=== PATIENT | male | born 1980 | race African-American/Black ===

== ENCOUNTER 2017-02-18 18:12 | Emergency (ER) | payer MEDICARE, MEDICAID ==
[2017-02-18 18:39] LABS: ADD MAN DIFF? NO
[2017-02-18 18:51] LABS: BASO # 0.1 x10^3/uL (0.0-0.2); BASO % 1 % (0-3); EOS # 0.1 x10^3/uL (0.0-0.7); EOS % 1 % (0-3); HEMATOCRIT 41.8 % (39.0-53.0); HEMOGLOBIN 13.7 g/dL (13.0-17.5); LYMPH # 2.3 x10^3/uL (1.0-4.8); LYMPH % 27 % (24-48); MEAN CORPUSCULAR HEMOGLOBIN 27 pg (25-35); MEAN CORPUSCULAR HGB CONC 33 g/dL (31-37); MEAN CORPUSCULAR VOLUME 82 fL (79-100); MONO # 0.8 x10^3/uL (0.0-1.1); MONO % 9 % (0-9); NEUT # 5.2 x10^3uL (1.8-7.7); NEUT % 62 % (31-73); PLATELET COUNT 279 x10^3/uL (140-400); RED BLOOD COUNT 5.09 x10^6/uL (4.30-5.70); RED CELL DISTRIBUTION WIDTH 12.7 % (11.5-14.5); WHITE BLOOD COUNT 8.4 x10^3/uL (4.0-11.0)
[2017-02-18] MEDS: ASPIRIN CHEWABLE 81 MG TABLET. PO (18:51)
[2017-02-18 18:56] LABS: ANION GAP 12 (6-14); BLOOD UREA NITROGEN 19 mg/dL (8-26); BUN/CREATININE RATIO 27 (6-20); CALCIUM 8.4 mg/dL (8.5-10.1); CARBON DIOXIDE 24 mmol/L (21-32); CHLORIDE 103 mmol/L (98-107); CREATININE 0.7 mg/dL (0.7-1.3); GFR 125.5; GLUCOSE 87 mg/dL (70-99); POTASSIUM 4.5 mmol/L (3.5-5.1); SODIUM 139 mmol/L (136-145)
[2017-02-18 19:02] LABS: TROPONINI < 0.017 ng/mL (0.000-0.055)
[2017-02-18 19:03] LABS: ALBUMIN 3.5 g/dL (3.4-5.0); ALBUMIN/GLOBULIN RATIO 0.7 (1.0-1.7); ALK PHOS 194 U/L (46-116); ALT (SGPT) 56 U/L (16-63); AST (SGOT) 67 U/L (15-37); TOTAL BILIRUBIN 0.2 mg/dL (0.2-1.0); TOTAL PROTEIN 8.3 g/dL (6.4-8.2)
[2017-02-18 20:17] LABS: D-DIMER 0.32 ug/mlFEU (0.00-0.50)
== END 2017-02-18 21:38 | disposition home or self-care (01) ==
LOC: ER 18:12
DX: M94.0 Chondrocostal junction syndrome [Tietze] (principal); K21.9 Gastro-esophageal reflux disease without esophagitis; Z87.442 Personal history of urinary calculi; Z21 Asymptomatic human immunodeficiency virus [HIV] infection status; Z87.891 Personal history of nicotine dependence; Z88.6 Allergy status to analgesic agent
CPT/HCPCS: 36415; 71045; 80053; 84484; 85025; 85379; 93005; 99285-25

== ENCOUNTER 2017-10-04 14:10 | Inpatient (IN) | payer BC, MEDICAID ==
[~2017-10-04] VITALS: Ht 193 cm; Wt 77.1 kg
--- NOTE | 2017-10-04 14:37 | PHYS DOC ---
Past Medical History Past Medical History: DVT, GERD, HIV, Kidney Stone, Other Additional Past Medical Histor: SPINAL NECK TUMOR, LEG PARALYSIS, pulmonary embolism Past Surgical History: No Surgical History Alcohol Use: Occasionally Drug Use: None Adult General Chief Complaint Chief Complaint: CHEST PAIN HPI HPI Patient is a 37-year-old male who arrives in the emergency department via EMS. He has a complex recent past medical history. He is noted to be HIV positive, and reports compliance with his antiretroviral medications. He states he was just hospitalized for about 2 weeks at [facility], after being diagnosed with bilateral pulmonary embolism and DVTs. He was reportedly started on Pradaxa, primarily because of interactions with his HIV medications. He left the hospital last night AGAINST MEDICAL ADVICE, because he states they were trying to find a rehabilitation facility for a minimal having difficulty doing so so he just left the hospital. He states that for the past 2 weeks he has been having intermittent paresis in his legs, and has a fluid collection in his spinal cord, but he was able to ambulate into the house last night. The patient's partner, Kyaw, who I spoke with by phone, was able to provide fairly cohesive history, as noted above. The patient does exhibit some stuttering speech and states he gets flustered, although he is selectively able to speak normally and answer questions normally. He states he fell earlier today and struck his anterior chest and is thus having anterior chest pain. Movement and palpation of this chest worsen his pain. There are no alleviating factors to his symptoms. He did exhibit urinary continence and paresis in his legs upon awakening this morning, but is able to flex and extend his legs now although he does have some weakness to his leg muscles. Review of Systems Review of Systems Constitutional: Denies fever or chills [] Eyes: Denies change in visual acuity, redness, or eye pain [] HENT: Denies nasal congestion or sore throat [] Respiratory: Denies cough or shortness of breath [] Cardiovascular: No additional information not addressed in HPI [] GI: Denies abdominal pain, nausea, vomiting, bloody stools or diarrhea [] : Denies dysuria or hematuria [] Musculoskeletal: Denies back pain or joint pain [] Integument: Denies rash or skin lesions [] Neurologic: Denies headache, focal weakness or sensory changes, except as noted above in the history of present illness. [] Endocrine: Denies polyuria or polydipsia [] All other systems were reviewed and found to be within normal limits, except as documented in this note. Current Medications Current Medications Current Medications Medications (Trade) Dose Ordered Sig/Tej Start Time Stop Time Status Last Admin Dose Admin Dabigatran (Pradaxa) 150 mg 1X ONCE 10/04/17 16:00 10/04/17 16:01 DC 10/04/17 16:04 150 MG Allergies Allergies Allergies Coded Allergies Type Severity Reaction Last Updated Verified naproxen Adverse Reaction Mild 02/18/17 Yes Physical Exam Physical Exam PHYSICAL EXAM: CONSTITUTIONAL: Well developed, well nourished HEAD: normocephalic, atraumatic EENT: PERRL, EOMI. Conjunctivae normal color, sclerae non-icteric; moist mucous membranes. NECK: Supple, non-tender; no meningismus. LUNGS: Lungs CTA, breathing even and unlabored. Normal air movement. HEART: Regular rate and rhythm, no murmur CHEST: No deformity; is some tenderness to palpation to the anterior chest wall. ABDOMEN: The abdomen is soft, and non-tender, no masses or bruits. EXTREM: Normal ROM; no deformity, no calf tenderness. Normal pulses palpable in all extremities. There is no pedal edema. SKIN: No rash; no diaphoresis NEURO: Alert; speech is stuttering, at times, but without dysarthria or aphasia , normal cognition; CN's grossly intact; there is some weakness to the lower extremity as bilaterally relative to the upper extremities, patellar reflexes are intact, there is no gross sensory deficit. BACK: No CVA TTP. Current Patient Data Vital Signs Vital Signs Date Time Temp Pulse Resp B/P (MAP) Pulse Ox O2 Delivery O2 Flow Rate FiO2 10/04/17 15:18 96 116/74 (88) 97 Room Air 10/04/17 14:16 98.0 17 98.0 Lab Values Laboratory Tests Test 10/04/17 15:13 White Blood Count 7.3 x10^3/uL (4.0-11.0) Red Blood Count 4.40 x10^6/uL (4.30-5.70) Hemoglobin 13.0 g/dL (13.0-17.5) Hematocrit 38.8 % (39.0-53.0) L Mean Corpuscular Volume 88 fL (79-100) Mean Corpuscular Hemoglobin 30 pg (25-35) Mean Corpuscular Hemoglobin Concent 34 g/dL (31-37) Red Cell Distribution Width 14.3 % (11.5-14.5) Platelet Count 292 x10^3/uL (140-400) Neutrophils (%) (Auto) 64 % (31-73) Lymphocytes (%) (Auto) 26 % (24-48) Monocytes (%) (Auto) 9 % (0-9) Eosinophils (%) (Auto) 1 % (0-3) Basophils (%) (Auto) 1 % (0-3) Neutrophils # (Auto) 4.6 x10^3uL (1.8-7.7) Lymphocytes # (Auto) 1.9 x10^3/uL (1.0-4.8) Monocytes # (Auto) 0.6 x10^3/uL (0.0-1.1) Eosinophils # (Auto) 0.1 x10^3/uL (0.0-0.7) Basophils # (Auto) 0.0 x10^3/uL (0.0-0.2) Prothrombin Time 13.6 SEC (11.7-14.0) Prothrombin Time INR 1.1 (0.8-1.1) Sodium Level 139 mmol/L (136-145) Potassium Level 3.7 mmol/L (3.5-5.1) Chloride Level 106 mmol/L (98-107) Carbon Dioxide Level 28 mmol/L (21-32) Anion Gap 5 (6-14) L Blood Urea Nitrogen 12 mg/dL (8-26) Creatinine 0.7 mg/dL (0.7-1.3) Estimated GFR (Cockcroft-Gault) 151.9 BUN/Creatinine Ratio 17 (6-20) Glucose Level 106 mg/dL (70-99) H Calcium Level 8.7 mg/dL (8.5-10.1) Magnesium Level 1.7 mg/dL (1.8-2.4) L Total Bilirubin 0.2 mg/dL (0.2-1.0) Aspartate Amino Transferase (AST) 18 U/L (15-37) Alanine Aminotransferase (ALT) 19 U/L (16-63) Alkaline Phosphatase 74 U/L (46-116) Creatine Kinase 51 U/L (39-308) Creatine Kinase MB (Mass) < 0.5 ng/mL (0.0-3.6) Creatine Kinase MB Relative Index % (0-4) Troponin I Quantitative < 0.017 ng/mL (0.000-0.055) HE-Nyg-P-Type Natriuretic Peptide 32 pg/mL (0-124) Total Protein 7.7 g/dL (6.4-8.2) Albumin 2.5 g/dL (3.4-5.0) L Albumin/Globulin Ratio 0.5 (1.0-1.7) L Lipase 152 U/L (73-393) Laboratory Tests 10/04/17 15:13 Laboratory Tests 10/04/17 15:13 EKG EKG [Sinus tachycardia at a rate of 105 beats for minute, normal axis, normal intervals, there are no acute ischemic ST/T changes.] Radiology/Procedures Radiology/Procedures [PROCEDURE: PORTABLE CHEST 1V Portable chest, 10/04/2017: HISTORY: Chest pain after a fall The heart size is normal. No pulmonary infiltrate is seen. There is no evidence of pleural fluid or pneumothorax. IMPRESSION: No acute cardiopulmonary abnormality is detected.] Course & Med Decision Making Course & Med Decision Making Pertinent Labs and Imaging studies reviewed. (See chart for details) [4:10 PM:The patient's condition remains stable. I spoke with the hospitalist , who accepted the patient to the hospital for further evaluation and treatment. I'm awaiting records from [facility], presumably the patient did have spinal imaging at that facility. He does not have any acute paresis or any new symptoms although symptoms are subacute. Further evaluation and treatment will be guided by prior records.] Dragon Disclaimer Dragon Disclaimer This electronic medical record was generated, in whole or in part, using a voice recognition dictation system. Departure Departure Impression: Primary Impression: Atypical chest pain Additional Impressions: Pulmonary embolism HIV (human immunodeficiency virus infection) Leg weakness Disposition: ADMITTED INPATIENT Admitting Physician: Jean-Paul Coreas Condition: STABLE Referrals: JUNIE ROJO DO (PCP) Problem Qualifiers NORA NOVAK MD Oct 04, 2017 14:37
--- NOTE | 2017-10-04 14:49 | EKG ---
[facility] [address] [place] [address] Test Date: 2017-10-04 Test Time: 14:16:59 Pat Name: BOBBY IBRAHIM Department: Room: Gender: M Medical Detailist: : 1980 Requested By: NORA NOVAK Order Number: [id number] Reading MD: Riki Kennedy MD Measurements Intervals [place] Rate: 105 P: 51 LA: 136 QRS: 39 QRSD: 104 T: 36 QT: 332 QTc: 443 Interpretive Statements SINUS TACHYCARDIA Electronically Signed On 10-05-2017 12:28:04 CDT by Riki Kennedy MD
--- NOTE | 2017-10-04 15:19 | RAD ---
Portable chest, 10/04/2017: HISTORY: Chest pain after a fall The heart size is normal. No pulmonary infiltrate is seen. There is no evidence of pleural fluid or pneumothorax. IMPRESSION: No acute cardiopulmonary abnormality is detected. Electronically signed by: Beau Rizzo MD (10/04/2017 3:16 PM) [facility]
[2017-10-04 15:24] LABS: BASO % 1 % (0-3); EOS # 0.1 x10^3/uL (0.0-0.7); EOS % 1 % (0-3); HEMATOCRIT 38.8 % (39.0-53.0); LYMPH # 1.9 x10^3/uL (1.0-4.8); LYMPH % 26 % (24-48); MEAN CORPUSCULAR HEMOGLOBIN 30 pg (25-35); MEAN CORPUSCULAR HGB CONC 34 g/dL (31-37); MEAN CORPUSCULAR VOLUME 88 fL (79-100); MONO # 0.6 x10^3/uL (0.0-1.1); MONO % 9 % (0-9); NEUT # 4.6 x10^3uL (1.8-7.7); NEUT % 64 % (31-73); PLATELET COUNT 292 x10^3/uL (140-400); RED CELL DISTRIBUTION WIDTH 14.3 % (11.5-14.5); WHITE BLOOD COUNT 7.3 x10^3/uL (4.0-11.0)
[2017-10-04 15:33] LABS: PROTHROMBIN TIME PATIENT 13.6 SEC (11.7-14.0)
[2017-10-04 15:41] LABS: CALCIUM 8.7 mg/dL (8.5-10.1); CREATININE 0.7 mg/dL (0.7-1.3); GFR 151.9; POTASSIUM 3.7 mmol/L (3.5-5.1)
[2017-10-04 15:47] LABS: ALBUMIN 2.5 g/dL (3.4-5.0); ALBUMIN/GLOBULIN RATIO 0.5 (1.0-1.7); MAGNESIUM 1.7 mg/dL (1.8-2.4); TOTAL BILIRUBIN 0.2 mg/dL (0.2-1.0); TOTAL PROTEIN 7.7 g/dL (6.4-8.2)
[2017-10-04 15:58] LABS: CREATINE KINASE 51 U/L (39-308)
[2017-10-04] MEDS ORDERED: DABIGATRAN ETEXILATE 150 MG CAPSULE. PO ONE (16:00)
--- NOTE | 2017-10-04 18:53 | PDOC1 ---
History and Physical Date of Admission Date of Admission DATE: 10/04/17 TIME: 18:53 Identification/Chief Complaint Chief Complaint CC states he was just hospitalized for about 2 weeks at [facility],diagnosed with bilateral pulmonary embolism and DVTs. reportedly started on Pradaxa, primarily because of interactions with his HIV medications. LAST NIGHT left the hospital last night AGAINST MEDICAL ADVICE, HX HIV SINE 2011, HX IV DRUG ABUSE states he fell earlier today and struck his anterior chest and is thus having anterior chest pain. palpation of his chest worsen his pain. Past Medical History Past Medical History Past Medical History Past Medical History: DVT, GERD, HIV, Kidney Stone, Other Additional Past Medical Histor: SPINAL NECK TUMOR, LEG PARALYSIS, pulmonary embolism Past Surgical History: No Surgical History Alcohol Use: Occasionally Drug Use: None family hx pos htn ED GENERAL TEMPLATE Adult General Chief Complaint Chief Complaint: CHEST PAIN Infectious disease: HIV ENT: No pertinent hx Social History Smoke: <1 pack per day Drugs: Heroin Current Problem List Problem List Problems Medical Problems: (1) Atypical chest pain Status: Acute (2) HIV (human immunodeficiency virus infection) Status: Acute (3) Leg weakness Status: Acute (4) Pulmonary embolism Status: Acute Current Medications Current Medications Current Medications Dabigatran (Pradaxa) 150 mg 1X ONCE PO Last administered on 10/04/17at 16:04; Start 10/04/17 at 16:00; Stop 10/04/17 at 16:01; Status DC Allergies Allergies: Coded Allergies: naproxen (Verified Adverse Reaction, Mild, 02/18/17) makes me loopy ROS Review of System Review of Systems Review of Systems Constitutional: Denies fever or chills [] Eyes: Denies change in visual acuity, redness, or eye pain [] HENT: Denies nasal congestion or sore throat [] Respiratory: MILD shortness of breath [] Cardiovascular: No additional information not addressed in HPI [] GI: Denies abdominal pain, nausea, vomiting, bloody stools or diarrhea [] : Denies dysuria or hematuria [] Musculoskeletal: Denies back pain or joint pain [] Integument: Denies rash or skin lesions [] Neurologic: Denies headache, focal weakness or sensory changes, except as noted above in the history of present illness. [] Endocrine: Denies polyuria or polydipsia [] 14 PT systems were reviewed and found to be within normal limits, except as documented . Respiratory: YES: Pleuritic Pain Cardiovascular: yes Chest Pain Musculoskeletal: Yes Gait Disturbance Physical Exam Physical Exam PHYSICAL EXAM: CONSTITUTIONAL: Well developed, well nourished HEAD: normocephalic, atraumatic EENT: PERRL, EOMI. Conjunctivae normal color, sclerae non-icteric; moist mucous membranes. NECK: Supple, non-tender; no meningismus. LUNGS: Lungs CTA, breathing even and unlabored. Normal air movement. HEART: Regular rate and rhythm, no murmur CHEST: No deformity; is some tenderness to palpation to the anterior chest wall. ABDOMEN: The abdomen is soft, and non-tender, no masses or bruits. EXTREM: Normal ROM; no deformity, no calf tenderness. Normal pulses palpable in all extremities. There is no pedal edema. SKIN: No rash; no diaphoresis NEURO: Alert; speech is stuttering, at times, but without dysarthria or aphasia , normal cognition; CN's grossly intact; there is no gross sensory deficit. BACK: No CVA TTP. Lungs: Normal air movement Neuro: Cranial nerves 3-12 NL Psych/Mental Status: Mental status NL Vitals Vitals Vital Signs Date Time Temp Pulse Resp B/P (MAP) Pulse Ox O2 Delivery O2 Flow Rate FiO2 10/04/17 18:09 87 19 110/79 (89) 96 Room Air 10/04/17 14:16 98.0 98.0 Labs Labs Laboratory Tests Test 10/04/17 15:13 White Blood Count 7.3 x10^3/uL (4.0-11.0) Red Blood Count 4.40 x10^6/uL (4.30-5.70) Hemoglobin 13.0 g/dL (13.0-17.5) Hematocrit 38.8 % (39.0-53.0) Mean Corpuscular Volume 88 fL (79-100) Mean Corpuscular Hemoglobin 30 pg (25-35) Mean Corpuscular Hemoglobin Concent 34 g/dL (31-37) Red Cell Distribution Width 14.3 % (11.5-14.5) Platelet Count 292 x10^3/uL (140-400) Neutrophils (%) (Auto) 64 % (31-73) Lymphocytes (%) (Auto) 26 % (24-48) Monocytes (%) (Auto) 9 % (0-9) Eosinophils (%) (Auto) 1 % (0-3) Basophils (%) (Auto) 1 % (0-3) Neutrophils # (Auto) 4.6 x10^3uL (1.8-7.7) Lymphocytes # (Auto) 1.9 x10^3/uL (1.0-4.8) Monocytes # (Auto) 0.6 x10^3/uL (0.0-1.1) Eosinophils # (Auto) 0.1 x10^3/uL (0.0-0.7) Basophils # (Auto) 0.0 x10^3/uL (0.0-0.2) Prothrombin Time 13.6 SEC (11.7-14.0) Prothromb Time International Ratio 1.1 (0.8-1.1) Sodium Level 139 mmol/L (136-145) Potassium Level 3.7 mmol/L (3.5-5.1) Chloride Level 106 mmol/L (98-107) Carbon Dioxide Level 28 mmol/L (21-32) Anion Gap 5 (6-14) Blood Urea Nitrogen 12 mg/dL (8-26) Creatinine 0.7 mg/dL (0.7-1.3) Estimated GFR (Cockcroft-Gault) 151.9 BUN/Creatinine Ratio 17 (6-20) Glucose Level 106 mg/dL (70-99) Calcium Level 8.7 mg/dL (8.5-10.1) Magnesium Level 1.7 mg/dL (1.8-2.4) Total Bilirubin 0.2 mg/dL (0.2-1.0) Aspartate Amino Transf (AST/SGOT) 18 U/L (15-37) Alanine Aminotransferase (ALT/SGPT) 19 U/L (16-63) Alkaline Phosphatase 74 U/L (46-116) Creatine Kinase 51 U/L (39-308) Creatine Kinase MB (Mass) < 0.5 ng/mL (0.0-3.6) Creatine Kinase MB Relative Index % (0-4) Troponin I Quantitative < 0.017 ng/mL (0.000-0.055) FP-Rns-C-Type Natriuretic Peptide 32 pg/mL (0-124) Total Protein 7.7 g/dL (6.4-8.2) Albumin 2.5 g/dL (3.4-5.0) Albumin/Globulin Ratio 0.5 (1.0-1.7) Lipase 152 U/L (73-393) Laboratory Tests Test 10/04/17 15:13 White Blood Count 7.3 x10^3/uL (4.0-11.0) Red Blood Count 4.40 x10^6/uL (4.30-5.70) Hemoglobin 13.0 g/dL (13.0-17.5) Hematocrit 38.8 % (39.0-53.0) Mean Corpuscular Volume 88 fL (79-100) Mean Corpuscular Hemoglobin 30 pg (25-35) Mean Corpuscular Hemoglobin Concent 34 g/dL (31-37) Red Cell Distribution Width 14.3 % (11.5-14.5) Platelet Count 292 x10^3/uL (140-400) Neutrophils (%) (Auto) 64 % (31-73) Lymphocytes (%) (Auto) 26 % (24-48) Monocytes (%) (Auto) 9 % (0-9) Eosinophils (%) (Auto) 1 % (0-3) Basophils (%) (Auto) 1 % (0-3) Neutrophils # (Auto) 4.6 x10^3uL (1.8-7.7) Lymphocytes # (Auto) 1.9 x10^3/uL (1.0-4.8) Monocytes # (Auto) 0.6 x10^3/uL (0.0-1.1) Eosinophils # (Auto) 0.1 x10^3/uL (0.0-0.7) Basophils # (Auto) 0.0 x10^3/uL (0.0-0.2) Prothrombin Time 13.6 SEC (11.7-14.0) Prothromb Time International Ratio 1.1 (0.8-1.1) Sodium Level 139 mmol/L (136-145) Potassium Level 3.7 mmol/L (3.5-5.1) Chloride Level 106 mmol/L (98-107) Carbon Dioxide Level 28 mmol/L (21-32) Anion Gap 5 (6-14) Blood Urea Nitrogen 12 mg/dL (8-26) Creatinine 0.7 mg/dL (0.7-1.3) Estimated GFR (Cockcroft-Gault) 151.9 BUN/Creatinine Ratio 17 (6-20) Glucose Level 106 mg/dL (70-99) Calcium Level 8.7 mg/dL (8.5-10.1) Magnesium Level 1.7 mg/dL (1.8-2.4) Total Bilirubin 0.2 mg/dL (0.2-1.0) Aspartate Amino Transf (AST/SGOT) 18 U/L (15-37) Alanine Aminotransferase (ALT/SGPT) 19 U/L (16-63) Alkaline Phosphatase 74 U/L (46-116) Creatine Kinase 51 U/L (39-308) Creatine Kinase MB (Mass) < 0.5 ng/mL (0.0-3.6) Creatine Kinase MB Relative Index % (0-4) Troponin I Quantitative < 0.017 ng/mL (0.000-0.055) TE-Jno-T-Type Natriuretic Peptide 32 pg/mL (0-124) Total Protein 7.7 g/dL (6.4-8.2) Albumin 2.5 g/dL (3.4-5.0) Albumin/Globulin Ratio 0.5 (1.0-1.7) Lipase 152 U/L (73-393) VTE Prophylaxis Ordered VTE Prophylaxis Devices: Yes VTE Pharmacological Prophylaxi: Yes Assessment/Plan Assessment/Plan Impression: Atypical chest pain Pulmonary embolism HIV (human immunodeficiency virus infection) Leg weakness HX IV DRUG ABUSE, REMOTE PLAN PRADAXA 150MG PO BID CYCLE TROPONIN I TELE CARDIOLOGY CONSULT Neurology consult ADITHYA BAIN MD Oct 04, 2017 18:53
[2017-10-04 19:10] VITALS: BP 112/77
[2017-10-04] MEDS: fentaNYL PF VIAL 100 MCG/2 ML VIAL IV PRN (20:56)
[2017-10-04] MEDS: DABIGATRAN ETEXILATE 150 MG CAPSULE. PO SCH (21:49)
[2017-10-04 22:00] LABS: BILIRUBIN,URINE NEGATIVE (NEG); CLARITY,URINE CLEAR; COLOR,URINE YELLOW; NITRITE,URINE NEGATIVE (NEG); PROTEIN,URINE NEGATIVE (NEG-TRACE); UROBILINOGEN,URINE 0.2 mg/dL (0.2 mg/dL)
[2017-10-04 22:10] LABS: BACTERIA,URINE 0 /HPF (0-FEW); RBC,URINE OCC /HPF (0-2)
[2017-10-04 23:10] VITALS: BP 109/77
[2017-10-04] MEDS ORDERED: GABA-586 PO (23:35)
[2017-10-04] MEDS ORDERED: DARU1TAB PO (23:35)
[2017-10-04] MEDS ORDERED: QUET50TA8 PO (23:35)
[2017-10-04] MEDS ORDERED: EMTR1TAB12 PO (23:35)
[2017-10-04] MEDS ORDERED: TRAM50TA PO (23:35)
[2017-10-04] MEDS ORDERED: DIAZEPAM10 MG PO (23:35)
[2017-10-04] MEDS ORDERED: LEVO5TAB2 PO (23:35)
[2017-10-04] MEDS ORDERED: DICY20TA3 PO (23:35)
[2017-10-04] MEDS ORDERED: OMEP40CA5 PO (23:35)
[2017-10-04] MEDS ORDERED: traMADol 50 MG TABLET PO PRN (23:45)
[2017-10-05] MEDS ORDERED: COBICISTAT PO SCH (00:15)
[2017-10-05] MEDS ORDERED: EMTRICITABINE PO SCH (00:15)
[2017-10-05] MEDS ORDERED: DARUNAVIR PO SCH (00:15)
[2017-10-05] MEDS ORDERED: TENOFOV ALAFENAM PO SCH (00:15)
[2017-10-05] MEDS: fentaNYL PF VIAL 100 MCG/2 ML VIAL IV PRN ×3 (00:28→09:42)
[2017-10-05] MEDS: diazePAM 5 MG TABLET PO SCH ×2 (01:08→09:24)
[2017-10-05 07:00] VITALS: BP 117/78
[2017-10-05] MEDS ORDERED: diazePAM 5 MG TABLET PO SCH (09:00)
[2017-10-05] MEDS: DABIGATRAN ETEXILATE 150 MG CAPSULE. PO SCH (09:24)
[2017-10-05] MEDS ORDERED: ACETAMINOPHEN 500 MG TABLET PO PRN (09:45)
[2017-10-05] MEDS ORDERED: ACETAMINOPHEN/CODEINE 300/30MG TABLET. PO PRN (09:45)
[2017-10-05] MEDS ORDERED: ONDANSETRON PF 4 MG/2 ML VIAL. IV PRN (09:45)
[2017-10-05] MEDS ORDERED: ONDANSETRON ODT 4 MG TAB.RAPDIS. PO PRN (09:45)
--- NOTE | 2017-10-05 09:45 | PDOC2 ---
CARDIAC CONSULT DATE OF CONSULT Date of Consult DATE: 10/05/17 TIME: 09:26 REASON FOR CONSULT Reason for Consult: chest pain REFERRING PHYSICIAN Referring Physician: Bartolo SOURCE Source: Chart review, Patient HISTORY OF PRESENT ILLNESS HISTORY OF PRESENT ILLNESS 37 year old male with a history of HIV, hepatitis, syrinx @ T3-T4, bipolar disorder and recent progressive lower extremity weakness who left AMA from [facility] on 10/03/2017 after they were unable to find a rehab/SNU to accept him. Diagnosed with bilateral peroneal vein DVTs there with a right medial lower lobe pulmonary embolus and started on Pradaxa. Reports falling yesterday with left sided chest pain that is worse with inspiration but other details not clear. Was seen in the ER here in February 2017 for similar symptoms. EKG and troponin levels not consistent with AMI. Reason for Visit: musculoskeletal chest pain PAST MEDICAL HISTORY Cardiovascular: No pertinent hx Pulmonary: Pulmonary embolus (right medial lower lobe with bilateral peroneal DVT diagnosed at [facility] 09/2017 - treated with Pradaxa) CENTRAL NERVOUS SYSTEM: Other (T3-T4 syrinx; chronic numbness LLE since 2015 accident) GI: GERD, Other ([facility] shigella[facility] Heme/Onc: No pertinent hx Hepatobiliary: Hep A/B/C Psych: Anxiety, Bipolar Musculoskeletal: Weakness (progressive recently), Other (C5-C6 and C6-C7 cervical spondylosis without stenosis; L5-S1 disk bulging) Infectious disease: HIV Renal/: Urinary Incontinence, Hematuria, Other (renal calculi - left small - seen on CT scan done @ [facility] on 09/26/2017) PAST SURGICAL HISTORY Past Surgical History: No pertinent history FAMILY HISTORY Family History: Family History Unknown SOCIAL HISTORY Social History denies heroin use; + smoking history - details unknown; UDS + @ [facility] on 2017 for meth, benzo, opiates; no UDS done on admission here Lives: with Family (partner - Kyaw) CURRENT MEDICATIONS CURRENT MEDICATIONS Current Medications Medications (Trade) Dose Ordered Sig/Tej Route PRN Reason Start Time Stop Time Status Last Admin Dose Admin Dabigatran (Pradaxa) 150 mg 1X ONCE PO 10/04/17 16:00 10/04/17 16:01 DC 10/04/17 16:04 Dabigatran (Pradaxa) 150 mg BID PO 10/04/17 21:00 10/05/17 09:24 Fentanyl Citrate (Fentanyl 2ml Vial) 50 mcg PRN Q4HRS PRN IV PAIN 10/04/17 20:30 10/05/17 05:57 Non-Formulary Medication (Darunavir/ Cobicistat (Prezcobix 800 mg-150 mg Tablet)) 1 each HS PO 10/05/17 00:15 10/05/17 00:28 Non-Formulary Medication (Emtricitabine/ Tenofov Alafenam (Descovy 200-25 mg Tablet)) 1 each HS PO 10/05/17 00:15 10/05/17 00:29 Diazepam (Valium) 10 mg BID PO 10/05/17 00:30 10/05/17 09:24 ALLERGIES ALLERGIES: Coded Allergies: naproxen (Verified Adverse Reaction, Mild, 02/18/17) makes me loopy ROS Review of System limited due to lack of cooperation PSYCHOLOGICAL ROS: YES: Anxiety Hematological and Lymphatic: YES: Blood Clots Cardiovascular: yes Chest Pain Genitourinary: YES Incontinence, YES Hematuria Musculoskeletal: Yes Gait Disturbance, Yes Muscular Weakness (lower extremities ) PHYSICAL EXAM General: Alert, Oriented X3, Other (not cooperative) HEENT: Atraumatic VITALS VITALS Vital Signs Date Time Temp Pulse Resp B/P (MAP) Pulse Ox O2 Delivery O2 Flow Rate FiO2 10/05/17 07:00 97.2 81 20 117/78 (91) 96 Room Air 97.2 LABS Lab: Laboratory Tests Test 10/04/17 15:13 10/04/17 19:30 10/04/17 21:55 White Blood Count 7.3 x10^3/uL (4.0-11.0) Red Blood Count 4.40 x10^6/uL (4.30-5.70) Hemoglobin 13.0 g/dL (13.0-17.5) Hematocrit 38.8 % (39.0-53.0) Mean Corpuscular Volume 88 fL (79-100) Mean Corpuscular Hemoglobin 30 pg (25-35) Mean Corpuscular Hemoglobin Concent 34 g/dL (31-37) Red Cell Distribution Width 14.3 % (11.5-14.5) Platelet Count 292 x10^3/uL (140-400) Neutrophils (%) (Auto) 64 % (31-73) Lymphocytes (%) (Auto) 26 % (24-48) Monocytes (%) (Auto) 9 % (0-9) Eosinophils (%) (Auto) 1 % (0-3) Basophils (%) (Auto) 1 % (0-3) Neutrophils # (Auto) 4.6 x10^3uL (1.8-7.7) Lymphocytes # (Auto) 1.9 x10^3/uL (1.0-4.8) Monocytes # (Auto) 0.6 x10^3/uL (0.0-1.1) Eosinophils # (Auto) 0.1 x10^3/uL (0.0-0.7) Basophils # (Auto) 0.0 x10^3/uL (0.0-0.2) Prothrombin Time 13.6 SEC (11.7-14.0) Prothromb Time International Ratio 1.1 (0.8-1.1) Sodium Level 139 mmol/L (136-145) Potassium Level 3.7 mmol/L (3.5-5.1) Chloride Level 106 mmol/L (98-107) Carbon Dioxide Level 28 mmol/L (21-32) Anion Gap 5 (6-14) Blood Urea Nitrogen 12 mg/dL (8-26) Creatinine 0.7 mg/dL (0.7-1.3) Estimated GFR (Cockcroft-Gault) 151.9 BUN/Creatinine Ratio 17 (6-20) Glucose Level 106 mg/dL (70-99) Calcium Level 8.7 mg/dL (8.5-10.1) Magnesium Level 1.7 mg/dL (1.8-2.4) Total Bilirubin 0.2 mg/dL (0.2-1.0) Aspartate Amino Transf (AST/SGOT) 18 U/L (15-37) Alanine Aminotransferase (ALT/SGPT) 19 U/L (16-63) Alkaline Phosphatase 74 U/L (46-116) Creatine Kinase 51 U/L (39-308) Creatine Kinase MB (Mass) < 0.5 ng/mL (0.0-3.6) Creatine Kinase MB Relative Index % (0-4) Troponin I Quantitative < 0.017 ng/mL (0.000-0.055) 0.022 ng/mL (0.000-0.055) FE-Utl-V-Type Natriuretic Peptide 32 pg/mL (0-124) Total Protein 7.7 g/dL (6.4-8.2) Albumin 2.5 g/dL (3.4-5.0) Albumin/Globulin Ratio 0.5 (1.0-1.7) Lipase 152 U/L (73-393) Urine Collection Type Unknown Urine Color Yellow Urine Clarity Clear Urine pH 6.0 Urine Specific [place] 1.020 Urine Protein Negative mg/dL (NEG-TRACE) Urine Glucose (UA) Negative mg/dL (NEG) Urine Ketones (Stick) Negative mg/dL (NEG) Urine Blood Negative (NEG) Urine Nitrite Negative (NEG) Urine Bilirubin Negative (NEG) Urine Urobilinogen Dipstick 0.2 mg/dL (0.2 mg/dL) Urine Leukocyte Esterase Negative (NEG) Urine RBC Occ /HPF (0-2) Urine WBC 1-4 /HPF (0-4) Urine Bacteria 0 /HPF (0-FEW) Urine Mucus Mod /LPF IMAGES IMAGES CXR: HISTORY: Chest pain after a fall The heart size is normal. No pulmonary infiltrate is seen. There is no evidence of pleural fluid or pneumothorax. IMPRESSION: No acute cardiopulmonary abnormality is detected. EKG EKG no acute changes, ST ASSESSMENT/PLAN ASSESSMENT/PLAN 1. chest pain --atypical, worse with inspiration --recommend TTE to evaluate LVEF given drug abuse history; ? cooperation as he decompensated after he was asked about his drug use history 2. Lower extremity weakness --T3-T4 syrinx --seen by neurosurgery @ [facility] and surgical intervention not advised 3. HIV --defer to primary service 4. pulmonary embolus with bilateral DVT --continue OAC ARTURO [employer] CHIE[employer] Oct 05, 2017 09:45
[2017-10-05] MEDS ORDERED: CETIRIZINE HCL 10 MG TABLET. PO SCH (10:00)
[2017-10-05] MEDS ORDERED: GABAPENTIN 300 MG CAPSULE. PO SCH (10:00)
[2017-10-05] MEDS ORDERED: PANTOPRAZOLE 40 MG TABLET.DR. PO SCH (10:00)
[2017-10-05] MEDS ORDERED: DICYCLOMINE HCL 10 MG CAPSULE PO PRN (10:00)
[2017-10-05 10:17] LABS: BASO % 0 % (0-3); EOS # 0.1 x10^3/uL (0.0-0.7); EOS % 1 % (0-3); HEMATOCRIT 36.5 % (39.0-53.0); HEMOGLOBIN 12.3 g/dL (13.0-17.5); LYMPH # 1.8 x10^3/uL (1.0-4.8); LYMPH % 26 % (24-48); MEAN CORPUSCULAR HEMOGLOBIN 30 pg (25-35); MEAN CORPUSCULAR HGB CONC 34 g/dL (31-37); MEAN CORPUSCULAR VOLUME 88 fL (79-100); MONO # 0.4 x10^3/uL (0.0-1.1); MONO % 6 % (0-9); NEUT # 4.6 x10^3uL (1.8-7.7); NEUT % 67 % (31-73); PLATELET COUNT 302 x10^3/uL (140-400); RED BLOOD COUNT 4.14 x10^6/uL (4.30-5.70); RED CELL DISTRIBUTION WIDTH 14.4 % (11.5-14.5); WHITE BLOOD COUNT 6.9 x10^3/uL (4.0-11.0)
[2017-10-05 10:53] LABS: ALBUMIN 2.5 g/dL (3.4-5.0); ALBUMIN/GLOBULIN RATIO 0.5 (1.0-1.7); CALCIUM 8.7 mg/dL (8.5-10.1); CREATININE 0.9 mg/dL (0.7-1.3); GFR 113.7; POTASSIUM 3.3 mmol/L (3.5-5.1); TOTAL BILIRUBIN 0.3 mg/dL (0.2-1.0); TOTAL PROTEIN 7.6 g/dL (6.4-8.2)
[2017-10-05 11:00] VITALS: BP 124/76
--- NOTE | 2017-10-05 12:04 | PDOC3 ---
Discharge Summary Visit Information Date of Admission: Oct 04, 2017 Date of Discharge: Oct 05, 2017 Admitting Diagnosis Comment: COSTOCHONDRITIS Atypical chest pain Pulmonary embolism HIV (human immunodeficiency virus infection) Leg weakness HX IV DRUG ABUSE, REMOTE Final Diagnosis Problems Medical Problems: (1) Atypical chest pain Status: Acute (2) HIV (human immunodeficiency virus infection) Status: Acute (3) Leg weakness Status: Acute (4) Pulmonary embolism Status: Acute Brief Hospital Course Allergies Allergies Coded Allergies Type Severity Reaction Last Updated Verified naproxen Adverse Reaction Mild 02/18/17 Yes Vital Signs Vital Signs Date Time Temp Pulse Resp B/P (MAP) Pulse Ox O2 Delivery O2 Flow Rate FiO2 10/05/17 09:42 17 Room Air 10/05/17 07:00 97.2 81 117/78 (91) 96 97.2 Lab Results Laboratory Tests Test 10/04/17 15:13 10/04/17 19:30 10/04/17 21:55 10/05/17 09:45 White Blood Count 7.3 x10^3/uL (4.0-11.0) 6.9 x10^3/uL (4.0-11.0) Red Blood Count 4.40 x10^6/uL (4.30-5.70) 4.14 x10^6/uL (4.30-5.70) Hemoglobin 13.0 g/dL (13.0-17.5) 12.3 g/dL (13.0-17.5) Hematocrit 38.8 % (39.0-53.0) 36.5 % (39.0-53.0) Mean Corpuscular Volume 88 fL (79-100) 88 fL (79-100) Mean Corpuscular Hemoglobin 30 pg (25-35) 30 pg (25-35) Mean Corpuscular Hemoglobin Concent 34 g/dL (31-37) 34 g/dL (31-37) Red Cell Distribution Width 14.3 % (11.5-14.5) 14.4 % (11.5-14.5) Platelet Count 292 x10^3/uL (140-400) 302 x10^3/uL (140-400) Neutrophils (%) (Auto) 64 % (31-73) 67 % (31-73) Lymphocytes (%) (Auto) 26 % (24-48) 26 % (24-48) Monocytes (%) (Auto) 9 % (0-9) 6 % (0-9) Eosinophils (%) (Auto) 1 % (0-3) 1 % (0-3) Basophils (%) (Auto) 1 % (0-3) 0 % (0-3) Neutrophils # (Auto) 4.6 x10^3uL (1.8-7.7) 4.6 x10^3uL (1.8-7.7) Lymphocytes # (Auto) 1.9 x10^3/uL (1.0-4.8) 1.8 x10^3/uL (1.0-4.8) Monocytes # (Auto) 0.6 x10^3/uL (0.0-1.1) 0.4 x10^3/uL (0.0-1.1) Eosinophils # (Auto) 0.1 x10^3/uL (0.0-0.7) 0.1 x10^3/uL (0.0-0.7) Basophils # (Auto) 0.0 x10^3/uL (0.0-0.2) 0.0 x10^3/uL (0.0-0.2) Prothrombin Time 13.6 SEC (11.7-14.0) Prothromb Time International Ratio 1.1 (0.8-1.1) Sodium Level 139 mmol/L (136-145) 137 mmol/L (136-145) Potassium Level 3.7 mmol/L (3.5-5.1) 3.3 mmol/L (3.5-5.1) Chloride Level 106 mmol/L (98-107) 104 mmol/L (98-107) Carbon Dioxide Level 28 mmol/L (21-32) 28 mmol/L (21-32) Anion Gap 5 (6-14) 5 (6-14) Blood Urea Nitrogen 12 mg/dL (8-26) 13 mg/dL (8-26) Creatinine 0.7 mg/dL (0.7-1.3) 0.9 mg/dL (0.7-1.3) Estimated GFR (Cockcroft-Gault) 151.9 113.7 BUN/Creatinine Ratio 17 (6-20) 14 (6-20) Glucose Level 106 mg/dL (70-99) 166 mg/dL (70-99) Calcium Level 8.7 mg/dL (8.5-10.1) 8.7 mg/dL (8.5-10.1) Magnesium Level 1.7 mg/dL (1.8-2.4) Total Bilirubin 0.2 mg/dL (0.2-1.0) 0.3 mg/dL (0.2-1.0) Aspartate Amino Transf (AST/SGOT) 18 U/L (15-37) 17 U/L (15-37) Alanine Aminotransferase (ALT/SGPT) 19 U/L (16-63) 24 U/L (16-63) Alkaline Phosphatase 74 U/L (46-116) 70 U/L (46-116) Creatine Kinase 51 U/L (39-308) Creatine Kinase MB (Mass) < 0.5 ng/mL (0.0-3.6) Creatine Kinase MB Relative Index % (0-4) Troponin I Quantitative < 0.017 ng/mL (0.000-0.055) 0.022 ng/mL (0.000-0.055) < 0.017 ng/mL (0.000-0.055) EY-Rzn-D-Type Natriuretic Peptide 32 pg/mL (0-124) Total Protein 7.7 g/dL (6.4-8.2) 7.6 g/dL (6.4-8.2) Albumin 2.5 g/dL (3.4-5.0) 2.5 g/dL (3.4-5.0) Albumin/Globulin Ratio 0.5 (1.0-1.7) 0.5 (1.0-1.7) Lipase 152 U/L (73-393) Urine Collection Type Unknown Urine Color Yellow Urine Clarity Clear Urine pH 6.0 Urine Specific [place] 1.020 Urine Protein Negative mg/dL (NEG-TRACE) Urine Glucose (UA) Negative mg/dL (NEG) Urine Ketones (Stick) Negative mg/dL (NEG) Urine Blood Negative (NEG) Urine Nitrite Negative (NEG) Urine Bilirubin Negative (NEG) Urine Urobilinogen Dipstick 0.2 mg/dL (0.2 mg/dL) Urine Leukocyte Esterase Negative (NEG) Urine RBC Occ /HPF (0-2) Urine WBC 1-4 /HPF (0-4) Urine Bacteria 0 /HPF (0-FEW) Urine Mucus Mod /LPF Vitamin B12 Level 651 pg/mL (247-911) Thyroid Stimulating Hormone (TSH) 1.544 uIU/mL (0.358-3.74) Laboratory Tests Test 10/04/17 15:13 10/04/17 19:30 10/04/17 21:55 10/05/17 09:45 White Blood Count 7.3 x10^3/uL (4.0-11.0) 6.9 x10^3/uL (4.0-11.0) Red Blood Count 4.40 x10^6/uL (4.30-5.70) 4.14 x10^6/uL (4.30-5.70) Hemoglobin 13.0 g/dL (13.0-17.5) 12.3 g/dL (13.0-17.5) Hematocrit 38.8 % (39.0-53.0) 36.5 % (39.0-53.0) Mean Corpuscular Volume 88 fL (79-100) 88 fL (79-100) Mean Corpuscular Hemoglobin 30 pg (25-35) 30 pg (25-35) Mean Corpuscular Hemoglobin Concent 34 g/dL (31-37) 34 g/dL (31-37) Red Cell Distribution Width 14.3 % (11.5-14.5) 14.4 % (11.5-14.5) Platelet Count 292 x10^3/uL (140-400) 302 x10^3/uL (140-400) Neutrophils (%) (Auto) 64 % (31-73) 67 % (31-73) Lymphocytes (%) (Auto) 26 % (24-48) 26 % (24-48) Monocytes (%) (Auto) 9 % (0-9) 6 % (0-9) Eosinophils (%) (Auto) 1 % (0-3) 1 % (0-3) Basophils (%) (Auto) 1 % (0-3) 0 % (0-3) Neutrophils # (Auto) 4.6 x10^3uL (1.8-7.7) 4.6 x10^3uL (1.8-7.7) Lymphocytes # (Auto) 1.9 x10^3/uL (1.0-4.8) 1.8 x10^3/uL (1.0-4.8) Monocytes # (Auto) 0.6 x10^3/uL (0.0-1.1) 0.4 x10^3/uL (0.0-1.1) Eosinophils # (Auto) 0.1 x10^3/uL (0.0-0.7) 0.1 x10^3/uL (0.0-0.7) Basophils # (Auto) 0.0 x10^3/uL (0.0-0.2) 0.0 x10^3/uL (0.0-0.2) Prothrombin Time 13.6 SEC (11.7-14.0) Prothromb Time International Ratio 1.1 (0.8-1.1) Sodium Level 139 mmol/L (136-145) 137 mmol/L (136-145) Potassium Level 3.7 mmol/L (3.5-5.1) 3.3 mmol/L (3.5-5.1) Chloride Level 106 mmol/L (98-107) 104 mmol/L (98-107) Carbon Dioxide Level 28 mmol/L (21-32) 28 mmol/L (21-32) Anion Gap 5 (6-14) 5 (6-14) Blood Urea Nitrogen 12 mg/dL (8-26) 13 mg/dL (8-26) Creatinine 0.7 mg/dL (0.7-1.3) 0.9 mg/dL (0.7-1.3) Estimated GFR (Cockcroft-Gault) 151.9 113.7 BUN/Creatinine Ratio 17 (6-20) 14 (6-20) Glucose Level 106 mg/dL (70-99) 166 mg/dL (70-99) Calcium Level 8.7 mg/dL (8.5-10.1) 8.7 mg/dL (8.5-10.1) Magnesium Level 1.7 mg/dL (1.8-2.4) Total Bilirubin 0.2 mg/dL (0.2-1.0) 0.3 mg/dL (0.2-1.0) Aspartate Amino Transf (AST/SGOT) 18 U/L (15-37) 17 U/L (15-37) Alanine Aminotransferase (ALT/SGPT) 19 U/L (16-63) 24 U/L (16-63) Alkaline Phosphatase 74 U/L (46-116) 70 U/L (46-116) Creatine Kinase 51 U/L (39-308) Creatine Kinase MB (Mass) < 0.5 ng/mL (0.0-3.6) Creatine Kinase MB Relative Index % (0-4) Troponin I Quantitative < 0.017 ng/mL (0.000-0.055) 0.022 ng/mL (0.000-0.055) < 0.017 ng/mL (0.000-0.055) LF-Fyn-B-Type Natriuretic Peptide 32 pg/mL (0-124) Total Protein 7.7 g/dL (6.4-8.2) 7.6 g/dL (6.4-8.2) Albumin 2.5 g/dL (3.4-5.0) 2.5 g/dL (3.4-5.0) Albumin/Globulin Ratio 0.5 (1.0-1.7) 0.5 (1.0-1.7) Lipase 152 U/L (73-393) Urine Collection Type Unknown Urine Color Yellow Urine Clarity Clear Urine pH 6.0 Urine Specific [place] 1.020 Urine Protein Negative mg/dL (NEG-TRACE) Urine Glucose (UA) Negative mg/dL (NEG) Urine Ketones (Stick) Negative mg/dL (NEG) Urine Blood Negative (NEG) Urine Nitrite Negative (NEG) Urine Bilirubin Negative (NEG) Urine Urobilinogen Dipstick 0.2 mg/dL (0.2 mg/dL) Urine Leukocyte Esterase Negative (NEG) Urine RBC Occ /HPF (0-2) Urine WBC 1-4 /HPF (0-4) Urine Bacteria 0 /HPF (0-FEW) Urine Mucus Mod /LPF Vitamin B12 Level 651 pg/mL (247-911) Thyroid Stimulating Hormone (TSH) 1.544 uIU/mL (0.358-3.74) Brief Hospital Course Mr. Toussaint is a 37 old homosexual male with HIV since 2011 on HAART, lives with his partner, admitted for chest pain which is muscular skeletal. Costochondritis. But admitted because of recent bilateral PE and DVT at [facility]. He is on house arrest. Comanage with cardiology. Echocardiogram pending if that is okay then we'll go home today with no change in meds. Continue continue pradaxa twice a day which she was started on [facility] Hemodynamically stable labs are okay. Ready and medically stable to go home with home health consults performed cardiology Procedures performed echo Discharge time less than 30 minutes Discharge disposition home with home health Discharge Information Condition at Discharge: Improved, Stable Disposition/Orders: D/C to Home w/ HH Scheduled Darunavir/Cobicistat (Prezcobix 800 mg-150 mg Tablet) 1 Each Tablet, 1 EACH PO HS, (Reported) Entered as Reported by: KOJO OLESN on 10/04/172334 Last Action: Converted on 10/04/172347 by KOJO OLSEN Diazepam (Diazepam) 10 Mg Tablet, 10 MG PO BID, (Reported) Entered as Reported by: KOJO LOSEN on 10/04/172334 Last Action: Converted on 10/04/172347 by KOJO OLSEN Emtricitabine/Tenofov Alafenam (Descovy 200-25 mg Tablet) 1 Each Tablet, 1 EACH PO HS, (Reported) Entered as Reported by: KOJO OLSEN on 10/04/172334 Last Action: Converted on 10/04/172347 by KOJO OLSEN Gabapentin (Gabapentin) 300 Mg Capsule, 900 MG PO TID, (Reported) Entered as Reported by: KOJO OLSEN on 10/04/172334 Last Action: Converted on 10/05/17940 by MARIO WHITNEY Levocetirizine Dihydrochloride (Levocetirizine Dihydrochloride) 5 Mg Tablet, 5 MG PO DAILY, (Reported) Entered as Reported by: KOJO OLSEN on 10/04/172334 Last Action: Converted on 10/05/17940 by MARIO WHITNEY Omeprazole (Omeprazole) 40 Mg Capsule.dr, 40 MG PO DAILY, (Reported) Entered as Reported by: KOJO OLSEN on 10/04/172334 Last Action: Converted on 10/05/17940 by MARIO WHITNEY Quetiapine Fumarate (Seroquel Xr) 50 Mg Tab.er.24h, 25 MG PO HS, (Reported) Entered as Reported by: KOJO OLSEN on 10/04/172334 Last Action: Continued on 10/05/17940 by MARIO WHITNEY Scheduled PRN Dicyclomine Hcl (Dicyclomine Hcl) 20 Mg Tablet, 20 MG PO QIDPRN PRN for DIARRHEA , (Reported) Entered as Reported by: KOJO OLSEN on 10/04/172334 Last Action: Converted on 10/05/17940 by MARIO WHITNEY Tramadol Hcl (Tramadol Hcl) 50 Mg Tablet, 100 MG PO Q8HRS PRN for PAIN, ( Reported) Entered as Reported by: KOJO OLSEN on 10/04/172334 Last Action: Continued on 10/04/172347 by MARIO BENNETT MD Oct 05, 2017 12:04
--- NOTE | 2017-10-05 12:15 | CARD ---
MR#: [id number] Date of Study: 10/05/2017 Ordering Physician: ARTURO SHINE, Referring Physician: ADITHYA BAIN Tech: Anabela Fall [place]IL[place] APPROVED REPORT EXAM: Two-dimensional and M-mode echocardiogram with Doppler and color Doppler. Other Information Quality : Good INDICATION Chest Pain 2D DIMENSIONS RVDd2.8 (2.9-3.5cm)Left Atrium(2D)2.9 (1.6-4.0cm) IVSd0.9 (0.7-1.1cm)Aortic Root(2D)3.3 (2.0-3.7cm) LVDd4.9 (3.9-5.9cm)LVOT Diameter2.2 (1.8-2.4cm) PWd0.9 (0.7-1.1cm)LVDs3.5 (2.5-4.0cm) FS (%) 28.5 %SV62.8 ml LVEF(%)55.0 (>50%) Aortic Valve AoV Peak Bry.117.7cm/sAoV VTI21.9cm AO Peak GR.5.5mmHgLVOT VTI 17.57cm AO Mean GR.3mmHgAVA (VTI)3.10cm2 Mitral Valve MV E Qelccglx29.1cm/sMV DECEL QTQZ420sx MV A Ebamambh16.6cm/sE/A Ratio1.3 TDI Lateral E' P. V13.39cm/sMedial E' P. V7.79cm/s E/Lateral E'4.9E/Medial E'8.4 Tricuspid Valve TR P. Ybncaglk040gn/sRAP TYBZYOTF1onRm TR Peak Gr.92ycSvUAKN50fmKu Pulmonary Vein S1 Ltaltoux71.2cm/sS2 Manwjqfg40.53cm/s D2 Ijafzhzd04.5cm/s LEFT VENTRICLE The left ventricle is normal size. There is normal left ventricular wall thickness. The left ventricu lar systolic function is normal and the ejection fraction is within normal range. The Ejection Fracti on is 55-60%. There is normal LV segmental wall motion. The left ventricular diastolic function and f illing is normal for age. RIGHT VENTRICLE The right ventricle is normal size. The right ventricular systolic function is normal. ATRIA The left atrium size is normal. The right atrium size is normal. The interatrial septum is intact wit h no evidence for an atrial septal defect or patent foramen ovale as noted on 2-D or Doppler imaging. AORTIC VALVE The aortic valve is normal in structure and function. Doppler and Color Flow revealed no significant aortic regurgitation. There is no significant aortic valvular stenosis. MITRAL VALVE The mitral valve is normal in structure and function. There is no evidence of mitral valve prolapse. There is no mitral valve stenosis. Doppler and Color-flow revealed trace mitral regurgitation. TRICUSPID VALVE The tricuspid valve is normal in structure and function. Doppler and Color Flow revealed trace tricus pid regurgitation. The PA pressure was estimated at 25 mmHg. There is no tricuspid valve stenosis. PULMONIC VALVE Doppler and Color Flow revealed trace pulmonic valvular regurgitation. There is no pulmonic valvular stenosis. GREAT VESSELS The aortic root is normal in size. The ascending aorta is normal in size. The IVC is normal in size a nd collapses >50% with inspiration. PERICARDIAL EFFUSION There is no evidence of significant pericardial effusion. Critical Notification Critical Value: No <Conclusion> The left ventricular systolic function is normal and the ejection fraction is within normal range. Th e Ejection Fraction is 55-60%. There is normal LV segmental wall motion. Signed by : Riki Kennedy, Electronically Approved : 10/05/2017 12:14:18
[2017-10-05 12:42] LABS: BARBITURATES NEG (NEG); BENZODIAZEPINES POS (NEG); CANNABINOIDS NEG (NEG); COCAINE NEG (NEG); METHADONE NEG (NEG); OPIATES NEG (NEG); PHENCYCLIDINE NEG (NEG)
[2017-10-05 12:43] LABS: AMPHETAMINE/METHAMPHETAMINE NEG (NEG)
--- NOTE | 2017-10-05 13:50 | RAD ---
CT LUMBAR SPINE WO CONTRAST, CT CERVICAL SPINE WO CONTRAST dated 10/05/2017 12:52 PM Indication:, Weakness.SPINAL CORD INJURY.. Comparison: No comparison is available. Technique: Contiguous axial imaging of the cervical and lumbar spine performed with thin cut coronal and sagittal reconstruction. One or more of the following individualized dose reduction techniques were utilized for this examination: 1. Automated exposure control 2. Adjustment of the mA and/or kV according to patient size 3. Use of iterative reconstruction technique Findings: Images of the cervical spine show slight retrolisthesis of C6 on C7. Sagittal alignment is otherwise anatomic. Vertebral body heights are maintained. No prevertebral soft tissue swelling. Posterior elements are intact. No evidence of fracture. Mild hypertrophic change of the superior and inferior endplates throughout. Multilevel uncovertebral spurring and facet arthropathy. Mild broad-based bulge and small left central protrusion at C5-C6 results in mild to moderate narrowing of the central canal with AP diameter canal narrowed to about 8 mm. Broad-based bulge at C6-C7 results in mild to moderate central stenosis with AP diameter canal narrowed to about 7 mm. There is moderate left foraminal stenosis at C5-C6 and C6-C7. Mild right foraminal stenosis at C6-C7. Visualized soft tissue structures unremarkable. Images of lumbar spine show normal sagittal alignment. Vertebral body heights are maintained. Posterior elements are intact. No evidence of fracture. Mild hypertrophic change of the superior and inferior endplates throughout with mild hypertrophic change of the lower lumbar apophyseal joints. Mild broad-based bulging at L3-L4, L4-L5 and L5-S1. No apparent central canal or foraminal compromise of the lumbar spine. There are borderline enlarged retroperitoneal lymph nodes. A left periaortic lymph node measures 11 mm short axis (coronal image 7). No additional soft tissue abnormality. Impression cervical spine: 1. No evidence of fracture or malalignment. 2. Mild multilevel spondylosis. There is mild to moderate central stenosis at C5-C6 and C6-C7 with varying degrees of mild to moderate foraminal narrowing throughout. The cervical cord is not well evaluated based on technique. Impression lumbar spine: 1. No evidence of fracture or malalignment. 2. Mild lower lumbar spondylosis with no evidence of neural compression. Electronically signed by: Bucky Torres MD (10/05/2017 1:47 PM) [id number]
--- NOTE | 2017-10-05 18:40 | PDOC2 ---
NEUROLOGY CONSULT Date of Admission Date of Admission DATE: 10/05/17 TIME: 18:23 Reason for Consult Reason for Consult: IMPRESSION: Bilateral LE weakness x 3 years. HIV. HCV. PE. DVT. IV drug user in past. RECOMMENDATIONS/PLAN: C-L spine MRI, but contraindicated due to legal metal device in his leg. C-L spine CT w/o contract instead. He was treated with anticoagulant for PE. Continue Neurontin. Treat HIV with ID. OT/PT. HISTORY OF THE PRESENT ILLNESS: 37-y-ole male patient with Hx of HIV, HCV, IV drug use/abuse is currently under house monitoring. He stated he was tested HIV and HCV positive in 2011 and received treatment. He sated he has LE weakness for about 3 years so far unable to walk. He was recently hospitalized in [facility] due to PE and DVT. PAST MEDICAL HISTORY Cardiovascular: No pertinent hx Pulmonary: Pulmonary embolus (right medial lower lobe with bilateral peroneal DVT diagnosed at [facility] 09/2017 - treated with Pradaxa) CENTRAL NERVOUS SYSTEM: Other (T3-T4 syrinx; chronic numbness LLE since 2015 accident) GI: GERD, Other (recent abx for shigella, e coli and ccampylobactor in the [facility]) Heme/Onc: No pertinent hx Hepatobiliary: Hep A/B/C Psych: Anxiety, Bipolar Musculoskeletal: Weakness (progressive recently), Other (C5-C6 and C6-C7 cervical spondylosis without stenosis; L5-S1 disk bulging) Infectious disease: HIV Renal/: Urinary Incontinence, Hematuria, Other (renal calculi - left small - seen on CT scan done @ [facility] on 09/26/2017) PAST SURGICAL HISTORY No pertinent history FAMILY HISTORY Unknown SOCIAL HISTORY Denies heroin use; + smoking history - details unknown; UDS + in [facility] on 2017 for meth, benzo, opiates. Lives: with partner - [place]aw. ALLERGY: Unknown MEDICATIONS: Refer to MAR REVIEW OF SYSTEMS: Constitutional: No cachexia. Head: No traumatic brain or head injury. Skin: No edema, or rash. Ear: No infection. Eyes: No vision loss or color blindness. Nose: No bleeding or purulent discharges. Hearing: No hearing decrease. Neck: No injury. Cardiac: No WA, arrhythmia. Pulmonary: No COPD. GI: GERD. Urinary/genital: UTI. Endocrinologic: No cousin face, craniofacial dysmorphism, polydactyly. Skeletomuscular: LE weakness. Neurological: see HP. Psychiatric: IV drug use/abuse in past. Otherwise, not [id number] review of systems. PHYSICAL EXAMINATION: General appearance is in chronic distress. HEENT: Normocephalic and nontraumatic. Eyes, nose, ears, and throat are unremarkable. Neck is supple. No lymphadenopathy. No bruits are heard over the carotid artery. No crepitus. Cardiovascular: S1, S2, regular rate and rhythm. Pulmonary: Clear to auscultation bilaterally. Abdomen: Bowel sounds are positive. Abdomen is soft, nontender, and nondistended. Extremities: No rash, lesions, or edema. No restriction of range of motion NEUROLOGICAL EXAMINATION: Alert Oriented to time, place and person. PERRL. EOMI. CN: no focal findings. Muscle tone: within normal. Muscle strength: 5 UE, 3-4 LE. DTR: 2 UE, brisky at knee. Plantar reflex: Flexor response bilaterally Gait: not examined in bed. Sensory exam: no abnormal findings. No cerebellar signs elicited. F-T-N test fine. Current Medications Current Medications Current Medications Dabigatran (Pradaxa) 150 mg 1X ONCE PO Last administered on 10/04/17at 16:04; Start 10/04/17 at 16:00; Stop 10/04/17 at 16:01; Status DC Dabigatran (Pradaxa) 150 mg BID PO Last administered on 10/05/17at 09:24; Start 10/04/17 at 21:00; Stop 10/05/17 at 14:19; Status DC Fentanyl Citrate (Fentanyl 2ml Vial) 50 mcg PRN Q4HRS PRN IV PAIN Last administered on 10/05/17at 09:42; Start 10/04/17 at 20:30; Stop 10/05/17 at 14:19 ; Status DC Tramadol HCl (Ultram) 100 mg PRN Q8HRS PRN PO PAIN; Start 10/04/17 at 23:45; Stop 10/05/17 at 14:19; Status DC Non-Formulary Medication (Darunavir/ Cobicistat (Prezcobix 800 mg-150 mg Tablet) ) 1 each HS PO Last administered on 10/05/17at 00:28; Start 10/05/17 at 00:15; Stop 10/05/17 at 14:19; Status DC Diazepam (Valium) 10 mg BID PO ; Start 10/05/17 at 09:00; Stop 10/05/17 at 09:00 ; Status DC Non-Formulary Medication (Emtricitabine/ Tenofov Alafenam (Descovy 200-25 mg Tablet)) 1 each HS PO Last administered on 10/05/17at 00:29; Start 10/05/17 at 00:15; Stop 10/05/17 at 14:19; Status DC Diazepam (Valium) 10 mg BID PO Last administered on 10/05/17at 09:24; Start at 00:30; Stop 10/05/17 at 14:19; Status DC Acetaminophen (Tylenol) 500 mg PRN Q6HRS PRN PO HEADACHE / TEMP; Start at 09:45; Stop 10/05/17 at 14:19; Status DC Acetaminophen/ Codeine Phosphate (Tylenol #3) 1 tab PRN Q6HRS PRN PO PAIN MILD ; Start 10/05/17 at 09:45; Stop 10/05/17 at 14:19; Status DC Ondansetron HCl (Zofran) 4 mg PRN Q6HRS PRN IV NAUSEA/VOMITING; Start 10/05/17 at 09:45; Stop 10/05/17 at 14:19; Status DC Ondansetron HCl (Zofran Odt) 4 mg PRN Q6HRS PRN PO NAUSEA/VOMITING; Start 10/05 at 09:45; Stop 10/05/17 at 14:19; Status DC Quetiapine Fumarate (SEROquel XR) 25 mg HS PO ; Start 10/05/17 at 21:00; Stop at 21:00; Status DC Dicyclomine HCl (Bentyl) 20 mg PRN QID PRN PO ABDOMINAL CRAMPING; Start at 10:00; Stop 10/05/17 at 14:19; Status DC Gabapentin (Neurontin) 900 mg TID PO Last administered on 10/05/17at 13:47; Start 10/05/17 at 10:00; Stop 10/05/17 at 14:19; Status DC Cetirizine HCl (ZyrTEC) 10 mg DAILY PO Last administered on 10/05/17at 13:47; Start 10/05/17 at 10:00; Stop 10/05/17 at 14:19; Status DC Pantoprazole Sodium (Protonix) 40 mg DAILYAC PO Last administered on 10/05/17at 13:47; Start 10/05/17 at 10:00; Stop 10/05/17 at 14:19; Status DC Active Scripts Active Reported Tramadol Hcl 50 Mg Tablet 100 Mg PO Q8HRS PRN Dicyclomine Hcl 20 Mg Tablet 20 Mg PO QIDPRN PRN Omeprazole 40 Mg Capsule.dr 40 Mg PO DAILY Levocetirizine Dihydrochloride 5 Mg Tablet 5 Mg PO DAILY Diazepam 10 Mg Tablet 10 Mg PO BID Seroquel Xr (Quetiapine Fumarate) 50 Mg Tab.er.24h 25 Mg PO HS Gabapentin 300 Mg Capsule 900 Mg PO TID Descovy 200-25 mg Tablet (Emtricitabine/Tenofov Alafenam) 1 Each Tablet 1 Each PO HS Prezcobix 800 mg-150 mg Tablet (Darunavir/Cobicistat) 1 Each Tablet 1 Each PO HS Allergies Allergies: Allergies Coded Allergies Type Severity Reaction Last Updated Verified naproxen Adverse Reaction Mild 02/18/17 Yes ROS Review of System The patient denies any associated fevers, chills, headache, ear pain, rhinorrhea , sore throat, stiff neck, productive cough, chest pain, shortness of breath, back or flank pain, abdominal pain, nausea, vomiting, diarrhea, constipation, dysuria, rash, numbness, weakness, tingling, incontinence, difficulty ambulating, or diaphoresis. Physical Exam Physical Exam General: Well developed, well nourished, no acute distress, well appearing HEENT: Pupils equally round and reactive to light, EOMI, no discharge, normal conjunctiva Neck: Supple, no nuchal rigidity, no JVD, trachea midline, no tenderness Cardiac: RRR, no murmurs, no gallops, no rubs Chest/Lungs: CTAB, no wheeze, no rhonchi, no crackles Abdomen: soft, non-distended, no guarding, no peritoneal signs, non-tender Back: No tenderness Extremities: no edema, pulses intact, non-tender,capillary refill <3 sec bilateral upper and lower extremities, Neuro: Alert and oriented x 4, no focal deficits, normal speech Vitals Vitals: Vital Signs Date Time Temp Pulse Resp B/P (MAP) Pulse Ox O2 Delivery O2 Flow Rate FiO2 10/05/17 11:00 94 20 124/76 (92) 96 Room Air 10/05/17 07:00 97.2 97.2 Labs Labs Laboratory Tests Test 10/04/17 15:13 10/04/17 19:30 10/04/17 21:55 10/05/17 09:45 White Blood Count 7.3 x10^3/uL (4.0-11.0) 6.9 x10^3/uL (4.0-11.0) Red Blood Count 4.40 x10^6/uL (4.30-5.70) 4.14 x10^6/uL (4.30-5.70) Hemoglobin 13.0 g/dL (13.0-17.5) 12.3 g/dL (13.0-17.5) Hematocrit 38.8 % (39.0-53.0) 36.5 % (39.0-53.0) Mean Corpuscular Volume 88 fL (79-100) 88 fL (79-100) Mean Corpuscular Hemoglobin 30 pg (25-35) 30 pg (25-35) Mean Corpuscular Hemoglobin Concent 34 g/dL (31-37) 34 g/dL (31-37) Red Cell Distribution Width 14.3 % (11.5-14.5) 14.4 % (11.5-14.5) Platelet Count 292 x10^3/uL (140-400) 302 x10^3/uL (140-400) Neutrophils (%) (Auto) 64 % (31-73) 67 % (31-73) Lymphocytes (%) (Auto) 26 % (24-48) 26 % (24-48) Monocytes (%) (Auto) 9 % (0-9) 6 % (0-9) Eosinophils (%) (Auto) 1 % (0-3) 1 % (0-3) Basophils (%) (Auto) 1 % (0-3) 0 % (0-3) Neutrophils # (Auto) 4.6 x10^3uL (1.8-7.7) 4.6 x10^3uL (1.8-7.7) Lymphocytes # (Auto) 1.9 x10^3/uL (1.0-4.8) 1.8 x10^3/uL (1.0-4.8) Monocytes # (Auto) 0.6 x10^3/uL (0.0-1.1) 0.4 x10^3/uL (0.0-1.1) Eosinophils # (Auto) 0.1 x10^3/uL (0.0-0.7) 0.1 x10^3/uL (0.0-0.7) Basophils # (Auto) 0.0 x10^3/uL (0.0-0.2) 0.0 x10^3/uL (0.0-0.2) Prothrombin Time 13.6 SEC (11.7-14.0) Prothromb Time International Ratio 1.1 (0.8-1.1) Sodium Level 139 mmol/L (136-145) 137 mmol/L (136-145) Potassium Level 3.7 mmol/L (3.5-5.1) 3.3 mmol/L (3.5-5.1) Chloride Level 106 mmol/L (98-107) 104 mmol/L (98-107) Carbon Dioxide Level 28 mmol/L (21-32) 28 mmol/L (21-32) Anion Gap 5 (6-14) 5 (6-14) Blood Urea Nitrogen 12 mg/dL (8-26) 13 mg/dL (8-26) Creatinine 0.7 mg/dL (0.7-1.3) 0.9 mg/dL (0.7-1.3) Estimated GFR (Cockcroft-Gault) 151.9 113.7 BUN/Creatinine Ratio 17 (6-20) 14 (6-20) Glucose Level 106 mg/dL (70-99) 166 mg/dL (70-99) Calcium Level 8.7 mg/dL (8.5-10.1) 8.7 mg/dL (8.5-10.1) Magnesium Level 1.7 mg/dL (1.8-2.4) Total Bilirubin 0.2 mg/dL (0.2-1.0) 0.3 mg/dL (0.2-1.0) Aspartate Amino Transf (AST/SGOT) 18 U/L (15-37) 17 U/L (15-37) Alanine Aminotransferase (ALT/SGPT) 19 U/L (16-63) 24 U/L (16-63) Alkaline Phosphatase 74 U/L (46-116) 70 U/L (46-116) Creatine Kinase 51 U/L (39-308) Creatine Kinase MB (Mass) < 0.5 ng/mL (0.0-3.6) Creatine Kinase MB Relative Index % (0-4) Troponin I Quantitative < 0.017 ng/mL (0.000-0.055) 0.022 ng/mL (0.000-0.055) < 0.017 ng/mL (0.000-0.055) MP-Eab-F-Type Natriuretic Peptide 32 pg/mL (0-124) Total Protein 7.7 g/dL (6.4-8.2) 7.6 g/dL (6.4-8.2) Albumin 2.5 g/dL (3.4-5.0) 2.5 g/dL (3.4-5.0) Albumin/Globulin Ratio 0.5 (1.0-1.7) 0.5 (1.0-1.7) Lipase 152 U/L (73-393) Urine Collection Type Unknown Urine Color Yellow Urine Clarity Clear Urine pH 6.0 Urine Specific [place] 1.020 Urine Protein Negative mg/dL (NEG-TRACE) Urine Glucose (UA) Negative mg/dL (NEG) Urine Ketones (Stick) Negative mg/dL (NEG) Urine Blood Negative (NEG) Urine Nitrite Negative (NEG) Urine Bilirubin Negative (NEG) Urine Urobilinogen Dipstick 0.2 mg/dL (0.2 mg/dL) Urine Leukocyte Esterase Negative (NEG) Urine RBC Occ /HPF (0-2) Urine WBC 1-4 /HPF (0-4) Urine Bacteria 0 /HPF (0-FEW) Urine Mucus Mod /LPF Vitamin B12 Level 651 pg/mL (247-911) Thyroid Stimulating Hormone (TSH) 1.544 uIU/mL (0.358-3.74) Test 10/05/17 12:06 Urine Opiates Screen Neg (NEG) Urine Methadone Screen Neg (NEG) Urine Barbiturates Neg (NEG) Urine Phencyclidine Screen Neg (NEG) Urine Amphetamine/Methamphetamine Neg (NEG) Urine Benzodiazepines Screen Pos (NEG) Urine Cocaine Screen Neg (NEG) Urine Cannabinoids Screen Neg (NEG) Urine Ethyl Alcohol Neg (NEG) Laboratory Tests Test 10/04/17 19:30 10/04/17 21:55 10/05/17 09:45 10/05/17 12:06 Troponin I Quantitative 0.022 ng/mL (0.000-0.055) < 0.017 ng/mL (0.000-0.055) Urine Collection Type Unknown Urine Color Yellow Urine Clarity Clear Urine pH 6.0 Urine Specific [place] 1.020 Urine Protein Negative mg/dL (NEG-TRACE) Urine Glucose (UA) Negative mg/dL (NEG) Urine Ketones (Stick) Negative mg/dL (NEG) Urine Blood Negative (NEG) Urine Nitrite Negative (NEG) Urine Bilirubin Negative (NEG) Urine Urobilinogen Dipstick 0.2 mg/dL (0.2 mg/dL) Urine Leukocyte Esterase Negative (NEG) Urine RBC Occ /HPF (0-2) Urine WBC 1-4 /HPF (0-4) Urine Bacteria 0 /HPF (0-FEW) Urine Mucus Mod /LPF White Blood Count 6.9 x10^3/uL (4.0-11.0) Red Blood Count 4.14 x10^6/uL (4.30-5.70) Hemoglobin 12.3 g/dL (13.0-17.5) Hematocrit 36.5 % (39.0-53.0) Mean Corpuscular Volume 88 fL (79-100) Mean Corpuscular Hemoglobin 30 pg (25-35) Mean Corpuscular Hemoglobin Concent 34 g/dL (31-37) Red Cell Distribution Width 14.4 % (11.5-14.5) Platelet Count 302 x10^3/uL (140-400) Neutrophils (%) (Auto) 67 % (31-73) Lymphocytes (%) (Auto) 26 % (24-48) Monocytes (%) (Auto) 6 % (0-9) Eosinophils (%) (Auto) 1 % (0-3) Basophils (%) (Auto) 0 % (0-3) Neutrophils # (Auto) 4.6 x10^3uL (1.8-7.7) Lymphocytes # (Auto) 1.8 x10^3/uL (1.0-4.8) Monocytes # (Auto) 0.4 x10^3/uL (0.0-1.1) Eosinophils # (Auto) 0.1 x10^3/uL (0.0-0.7) Basophils # (Auto) 0.0 x10^3/uL (0.0-0.2) Sodium Level 137 mmol/L (136-145) Potassium Level 3.3 mmol/L (3.5-5.1) Chloride Level 104 mmol/L (98-107) Carbon Dioxide Level 28 mmol/L (21-32) Anion Gap 5 (6-14) Blood Urea Nitrogen 13 mg/dL (8-26) Creatinine 0.9 mg/dL (0.7-1.3) Estimated GFR (Cockcroft-Gault) 113.7 BUN/Creatinine Ratio 14 (6-20) Glucose Level 166 mg/dL (70-99) Calcium Level 8.7 mg/dL (8.5-10.1) Total Bilirubin 0.3 mg/dL (0.2-1.0) Aspartate Amino Transf (AST/SGOT) 17 U/L (15-37) Alanine Aminotransferase (ALT/SGPT) 24 U/L (16-63) Alkaline Phosphatase 70 U/L (46-116) Total Protein 7.6 g/dL (6.4-8.2) Albumin 2.5 g/dL (3.4-5.0) Albumin/Globulin Ratio 0.5 (1.0-1.7) Vitamin B12 Level 651 pg/mL (247-911) Thyroid Stimulating Hormone (TSH) 1.544 uIU/mL (0.358-3.74) Urine Opiates Screen Neg (NEG) Urine Methadone Screen Neg (NEG) Urine Barbiturates Neg (NEG) Urine Phencyclidine Screen Neg (NEG) Urine Amphetamine/Methamphetamine Neg (NEG) Urine Benzodiazepines Screen Pos (NEG) Urine Cocaine Screen Neg (NEG) Urine Cannabinoids Screen Neg (NEG) Urine Ethyl Alcohol Neg (NEG) BEAR HILL MD Oct 05, 2017 18:40
[2017-10-05] MEDS ORDERED: QUEtiapine 50 MG TAB.ER.24H. PO SCH (21:00)
== END 2017-10-05 14:05 | disposition home health service (06) | DRG 206 ==
LOC: ER 14:10 → 6 SOUTH 16:20
PROVIDERS: ADMIT Family Medicine; ATTEND Family Medicine
DX: M94.0 Chondrocostal junction syndrome [Tietze] (principal); B19.20 Unspecified viral hepatitis C without hepatic coma; R32 Unspecified urinary incontinence; M47.812 Spondylosis without myelopathy or radiculopathy, cervical region; F41.9 Anxiety disorder, unspecified; F31.9 Bipolar disorder, unspecified; W19.XXXA Unspecified fall, initial encounter; R20.0 Anesthesia of skin; G83.10 Monoplegia of lower limb affecting unspecified side; F17.210 Nicotine dependence, cigarettes, uncomplicated; Z21 Asymptomatic human immunodeficiency virus [HIV] infection status; K21.9 Gastro-esophageal reflux disease without esophagitis; R26.2 Difficulty in walking, not elsewhere classified; F19.11 Other psychoactive substance abuse, in remission; Z86.711 Personal history of pulmonary embolism; Z79.02 Long term (current) use of antithrombotics/antiplatelets; Z87.442 Personal history of urinary calculi; Z86.718 Personal history of other venous thrombosis and embolism; Z88.6 Allergy status to analgesic agent; Z79.899 Other long term (current) drug therapy; Z65.3 Problems related to other legal circumstances; Y93.89 Activity, other specified; Y92.89 Other specified places as the place of occurrence of the external cause; Y99.8 Other external cause status
CPT/HCPCS: 36415; 71045; 72125; 72131; 80053; 80307; 81001; 82553; 82607; 83690; 83735; 83880; 84443; 84484; 85025; 85610; 86141; 93005; 93306; J3010; G0479